=== PATIENT | female | born 1945 | race Caucasian/White ===

== ENCOUNTER → 2020-11-05 | Outpatient (CLI) | payer MEDICARE, OTHER ==
[~2020-11-05] MED LIST: ACETAMINOPHEN325 M1 PO; AMLODIPINE BESYL5 MG PO; COVID-19 VACC, MRNA(MODERNA)/PF 100 MCG/0.5 ML VIAL IM ONE; LASIX20 MG PO; MULTI-VITAMIN1 EACH PO
== END ==
LOC: VACCPMC 08:59
DX: Z23 Encounter for immunization (principal); Z20.822 Contact with and (suspected) exposure to COVID-19
CPT/HCPCS: 0011A; 91301

== ENCOUNTER 2020-12-01 09:32 | Observation (INO) | payer MEDICARE, OTHER ==
[~2020-12-01] VITALS: Ht 152.4 cm; Wt 72.6 kg
[~2020-12-01 09:32] MED LIST changes: +CEFAZOLIN SOD 1 GM/NS 50ML 100 ML IV ONE; +CELECOXIB 200 MG CAP ONE; -COVID-19 VACC, MRNA(MODERNA)/PF 100 MCG/0.5 ML VIAL IM ONE; +DEXAMETHASONE SOD PHOS 10 MG/1 ML VIAL ONE; +GABAPENTIN 300 MG CAP ONE; +PRILOSEC OTC20 MG PO; +ROPIVACAINE 246.25 MG, EPINEPHRINE HCL 1:1000 1ML 0.5 MG, CLONIDINE HCL 0.08 MG, KETORO... INJ ONE
[2020-12-01] MEDS ORDERED: HYDROCODONE/APAP 7.5MG-325MG 1 EA TAB PO PRN (11:45)
[2020-12-01] MEDS ORDERED: ACETAMINOPHEN 650 MG SUPP PR PRN (11:45)
[2020-12-01] MEDS ORDERED: ZOLPIDEM TARTRATE 5 MG TAB PO PRN (11:45)
[2020-12-01] MEDS ORDERED: ONDANSETRON HCL INJ 2MG/ML 2ML 2 MG/ML VIAL IV PRN (11:45)
[2020-12-01] MEDS ORDERED: HYDROCODONE/APAP 5MG-325MG TAB PO PRN (11:45)
[2020-12-01] MEDS ORDERED: DOCUSATE SODIUM 100 MG CAP PO PRN (11:45)
[2020-12-01] MEDS ORDERED: DIPHENHYDRAMINE HCL INJ 50 MG/ML VIAL IV PRN (11:45)
[2020-12-01] MEDS ORDERED: KETOROLAC TROMETHAMINE 30 MG/ML VIAL IV PRN (11:45)
[2020-12-01] MEDS ORDERED: PROPOFOL IV EMULSION 10 MG/ML 20 ML VIAL ONE (11:49)
[2020-12-01] MEDS ORDERED: FAMOTIDINE 20 MG/2 ML VIAL IV ONE (11:49)
[2020-12-01] MEDS ORDERED: LIDOCAINE HCL 2% LOCAL INJ 5 ML SDV VIAL INJ ONE (11:49)
[2020-12-01] MEDS ORDERED: DEXAMETHASONE SOD PHOS INJ 4 MG/ML VIAL ONE (11:49)
[2020-12-01] MEDS ORDERED: METOCLOPRAMIDE HCL 10 MG/2ML VIAL ONE (11:49)
[2020-12-01] MEDS ORDERED: SEVOFLURANE INHAL SOLN 250 ML PEN BTL ONE (11:49)
[2020-12-01] MEDS ORDERED: SUCCINYLCHOLINE CHLORIDE 20 MG/ML 10ML VIAL ONE (11:49)
[2020-12-01] MEDS ORDERED: POVIDONE IODINE 0.05% 0.05 % ML PO ONE (11:49)
[2020-12-01] MEDS ORDERED: LIDOCAINE 2%/ EPINEPHRINE 20ML MDV ONE (12:27)
[2020-12-01] MEDS ORDERED: ROPIVACAINE 0.5% 5 MG/ML 30 ML SDV ONE (12:27)
[2020-12-01 12:54] VITALS: BP 112/57
[2020-12-01 12:55] VITALS: BP 127/57
[2020-12-01 13:17] VITALS: BP 127/57
[2020-12-01 16:38] VITALS: BP 126/66
[2020-12-01] MEDS: CELECOXIB 200 MG CAP PO SCH (17:04)
[2020-12-01] MEDS: ASPIRIN 325 MG TAB PO SCH (17:04)
[2020-12-01] MEDS: SODIUM CHLORIDE 0.9% 1000ML 1,000 ML IV SCH ×2 (17:04→23:30)
[2020-12-01] MEDS: CEFAZOLIN SOD 1 GM/NS 50ML 50 ML IV SCH (18:01)
[2020-12-01 20:00] VITALS: BP 120/60
[2020-12-01 20:39] VITALS: BP 120/60
[2020-12-02] VITALS: BP 125/72
[2020-12-02] MEDS: CEFAZOLIN SOD 1 GM/NS 50ML 50 ML IV SCH ×2 (01:37→09:16)
[2020-12-02 04:00] VITALS: BP 117/52
[2020-12-02 05:25] LABS: HEMATOCRIT 34.6 % (34.2-44.1); HEMOGLOBIN 11.5 g/dL (12.0-16.0)
[2020-12-02] MEDS ORDERED: OMEPRAZOLE 20 MG CAP PO SCH (07:30)
[2020-12-02 07:49] VITALS: BP 121/45
[2020-12-02 08:48] VITALS: BP 121/45
[2020-12-02] MEDS ORDERED: FUROSEMIDE 20 MG TAB PO SCH (09:00)
[2020-12-02] MEDS ORDERED: NON-FORMULARY MEDICATION (Omeprazole Magnesium (Prilosec Otc) 40 MG) PO SCH (09:00)
[2020-12-02] MEDS ORDERED: AMLODIPINE BESYLATE 5 MG TAB PO SCH (09:00)
[2020-12-02] MEDS: CELECOXIB 200 MG CAP PO SCH ×2 (09:06→18:01)
[2020-12-02] MEDS: ASPIRIN 325 MG TAB PO SCH ×2 (09:07→18:01)
[2020-12-02] MEDS: SODIUM CHLORIDE 0.9% 1000ML 1,000 ML IV SCH (09:30)
[2020-12-02] MEDS ORDERED: ACETAMINOPHEN 1000 MG/100 ML IV PRN (11:45)
[2020-12-02 11:49] VITALS: BP 113/52
[2020-12-02 16:29] VITALS: BP 127/48
== END 2020-12-02 19:59 ==
LOC: OR 09:32 → PACU V 11:40 → MED/SURG 12:41
PROVIDERS: ADMIT Specialist; ATTEND Specialist
DX: M17.11 Unilateral primary osteoarthritis, right knee (principal); Z96.652 Presence of left artificial knee joint; Z01.812 Encounter for preprocedural laboratory examination; Z20.822 Contact with and (suspected) exposure to COVID-19; K21.9 Gastro-esophageal reflux disease without esophagitis; I11.0 Hypertensive heart disease with heart failure; I50.9 Heart failure, unspecified; Z86.16 Personal history of COVID-19
CPT/HCPCS: 27447; 36415; 73560; 85014; 85018; 86850; 86900; 86920; 97110; 97116; 97161; 97530 ×2; G0378 ×2; J0171; J0690 ×2; J1100; J1885; J2795; J7030; U0002 ×2; C1713; C1776; J0330; J2001; J2765

== ENCOUNTER → 2020-12-02 | Outpatient (CLI) | payer OTHER, MEDICARE ==
[~2020-12-02] MED LIST changes: -CEFAZOLIN SOD 1 GM/NS 50ML 100 ML IV ONE; -CELECOXIB 200 MG CAP ONE; -DEXAMETHASONE SOD PHOS 10 MG/1 ML VIAL ONE; -GABAPENTIN 300 MG CAP ONE; -ROPIVACAINE 246.25 MG, EPINEPHRINE HCL 1:1000 1ML 0.5 MG, CLONIDINE HCL 0.08 MG, KETORO... INJ ONE; +SODIUM CHLORIDE 0.9% 500ML 500 ML ONE; +TRANEXAMIC ACID 1,000 MG/10 ML ML ONE; +VANCOMYCIN HCL 1,000 MG ONE
== END | disposition home or self-care (01) ==
LOC: VACCPMC 10:20
DX: Z23 Encounter for immunization (principal); Z20.822 Contact with and (suspected) exposure to COVID-19
CPT/HCPCS: J3370; J7040